=== PATIENT | male | born 1960 | race Caucasian/White ===

== ENCOUNTER 2020-08-22 19:48 | Inpatient (IN) | payer MEDICAID, OTHER ==
[~2020-08-22] VITALS: Ht 208.3 cm; Wt 185.0 kg
[2020-08-22] MEDS: PIPERACILLIN-TAZOB 3.375GM 100 ML IV ONE ×2 (00:15→23:15)
[2020-08-22 22:08] LABS: Eosinophils # (auto) 0 10 ^3/uL (0-0.8); Lymphocytes # (auto) 0.4 10 ^3/uL (0.4-5.4); Lymphocytes % (auto) 1.8 % (10.0-50.0); Monocytes # (auto) 0.6 10 ^3/uL (0-1.3); Platelet Count (auto) 289 10^3/uL (140-450)
[2020-08-22 22:11] LABS: Basophils # (auto) 0.2 10 ^3/uL (0-0.2); Basophils % (auto) 0.6 % (0.0-2.0); Hematocrit 40.5 % (41.0-53.0); Hemoglobin 13.5 g/dL (13.5-17.5); Mean Corpuscular Hemoglobin 34.3 pg (28.0-32.0); Mean Corpuscular Hgb Conc. 33.3 g/dL (32.0-36.0); Mean Corpuscular Volume 103.2 fL (80.0-100.0); Monocytes % (auto) 2.6 % (0.0-12.0); Neutrophils # (auto) 22.8 10 ^3/uL (1.6-8.6); Red Blood Cells 3.92 10^6/uL (4.5-5.90); Red Cell Distribution Width 18.2 % (11.8-14.3)
[2020-08-22 22:24] LABS: Alanine Aminotransferase 26 U/L (16-61); Albumin 3.3 g/dL (3.4-5.0); Anion Gap 7 (5-15); Aspartate Aminotransferase 39 U/L (15-37); BUN/Creatinine Ratio 17.3; Blood Urea Nitrogen 18 mg/dL (7-18); Calcium 8.2 mg/dL (8.5-10.1); Carbon Dioxide 24 mmol/L (21-32); Chloride 103 mmol/L (98-107); GFR African American 94 mL/min; GFR Non-African American 77 mL/min; Glucose 92 mg/dL (74-106); Potassium 4.9 mmol/L (3.5-5.1); Sodium 134 mmol/L (136-145)
[2020-08-22 22:30] LABS: Alkaline Phosphatase 114 U/L (45-117); Bilirubin, Total 1.7 mg/dL (0.2-1.0); Total Protein 7.2 g/dL (6.4-8.2)
[2020-08-22 22:35] LABS: Lactic Acid w/Reflex 2.2 mmol/L (0.4-2.0)
[2020-08-22] MEDS ORDERED: VANCOMYCIN 1GM/250ML 250 ML IV ONE (23:15)
[2020-08-22 23:52] LABS: Urine Bacteria FEW /hpf (None Seen); Urine Blood 1+ /uL (Negative); Urine Mucus FEW (None Seen); Urine Specific Gravity 1.028 (1.001-1.035); Urine WBC 22 /hpf (0 - 3)
[2020-08-23 00:04] LABS: Alcohol, Urine < 3.0 mg/dL (0-10); Amphetamine Screen, Urine POSITIVE (NEGATIVE); Barbiturate Scree,Urine NEGATIVE (NEGATIVE); Benzodiazephine Screen, Urine NEGATIVE (NEGATIVE); Cannabinoid Screen, Urine NEGATIVE (NEGATIVE); Cocaine Screen, Urine NEGATIVE (NEGATIVE); Opiate Scree,Urine NEGATIVE (NEGATIVE); Phencyclidine Screen, Urine NEGATIVE (NEGATIVE)
[2020-08-23] MEDS ORDERED: ACETAMINOPHEN 325 MG TAB PO PRN (03:00)
[2020-08-23] MEDS ORDERED: ONDANSETRON HCL 4 MG/2 ML VIAL IV PRN (03:00)
[2020-08-23] MEDS ORDERED: NITROGLYCERIN 0.4 MG SL TAB SL PRN (04:45)
[2020-08-23] MEDS ORDERED: MORPHINE SULF INJ 2 MG/ML SYRINGE 1ML IV PRN (04:45)
[2020-08-23] MEDS: CLINDAMYCIN 600MG IV 50 ML IV SCH ×3 (06:11→22:22)
[2020-08-23] MEDS ORDERED: cloNIDine HCL 0.1 MG TAB PO PRN (08:00)
[2020-08-23] MEDS: cefTRIAXone 1GM/50ML D5W 50 ML IV SCH (08:40)
[2020-08-23] MEDS: ASPirin 81 mg TAB PO SCH (11:17)
[2020-08-23] MEDS: METOPROLOL TARTRATE 25 MG TAB PO SCH ×2 (11:18→22:23)
[2020-08-23] MEDS: FAMOTIDINE 20 MG TAB PO SCH ×2 (11:18→22:23)
[2020-08-23] MEDS: FUROSEMIDE 40 MG TAB PO SCH (11:18)
[2020-08-23] MEDS: ENOXAPARIN SOD 40 MG/0.4 ML SYRINGE SC SCH (11:19)
[2020-08-23] MEDS ORDERED: IOHEXOL 350 MG/ML 100ML IJ ONE (11:31)
[2020-08-23 22:00] VITALS: BP 132/69
[2020-08-23] MEDS: ATORVASTATIN 20 MG TAB PO SCH (22:22)
[2020-08-24 05:00] VITALS: BP 112/64
[2020-08-24 05:24] LABS: Basophils # (auto) 0 10 ^3/uL (0-0.2); Basophils % (auto) 0.5 % (0.0-2.0); Eosinophils # (auto) 0.1 10 ^3/uL (0-0.8); Hematocrit 40.6 % (41.0-53.0); Hemoglobin 13.5 g/dL (13.5-17.5); Lymphocytes # (auto) 0.6 10 ^3/uL (0.4-5.4); Lymphocytes % (auto) 11.4 % (10.0-50.0); Mean Corpuscular Hemoglobin 34.5 pg (28.0-32.0); Mean Corpuscular Hgb Conc. 33.3 g/dL (32.0-36.0); Mean Corpuscular Volume 103.7 fL (80.0-100.0); Monocytes # (auto) 0.5 10 ^3/uL (0-1.3); Neutrophils # (auto) 4.4 10 ^3/uL (1.6-8.6); Neutrophils % (auto) 78.1 % (37.0-80.0); Platelet Count (auto) 254 10^3/uL (140-450); Red Blood Cells 3.91 10^6/uL (4.5-5.90); Red Cell Distribution Width 18.4 % (11.8-14.3); White Blood Cell 5.6 10^3/uL (4.4-10.8)
[2020-08-24 05:44] LABS: Calcium 8.3 mg/dL (8.5-10.1)
[2020-08-24] MEDS: CLINDAMYCIN 600MG IV 50 ML IV SCH ×3 (06:37→21:30)
[2020-08-24 08:00] VITALS: BP 101/58
[2020-08-24] MEDS: ENOXAPARIN SOD 40 MG/0.4 ML SYRINGE SC SCH (08:37)
[2020-08-24] MEDS: ASPirin 81 mg TAB PO SCH (08:37)
[2020-08-24] MEDS: cefTRIAXone 1GM/50ML D5W 50 ML IV SCH (08:37)
[2020-08-24] MEDS: FAMOTIDINE 20 MG TAB PO SCH ×2 (08:38→21:30)
[2020-08-24] MEDS: FUROSEMIDE 40 MG TAB PO SCH (08:38)
[2020-08-24] MEDS: METOPROLOL TARTRATE 25 MG TAB PO SCH ×2 (08:38→21:31)
[2020-08-24 12:00] VITALS: BP 118/76
[2020-08-24 16:00] VITALS: BP 129/77
[2020-08-24] MEDS: ATORVASTATIN 20 MG TAB PO SCH (21:32)
[2020-08-24 22:00] VITALS: BP 126/59
[2020-08-25 05:00] VITALS: BP 151/74
[2020-08-25] MEDS: CLINDAMYCIN 600MG IV 50 ML IV SCH ×3 (05:20→21:41)
[2020-08-25] MEDS: cefTRIAXone 1GM/50ML D5W 50 ML IV SCH (08:59)
[2020-08-25 09:02] VITALS: BP 123/51
[2020-08-25] MEDS: FUROSEMIDE 40 MG TAB PO SCH (09:35)
[2020-08-25] MEDS: ASPirin 81 mg TAB PO SCH (09:35)
[2020-08-25] MEDS: ENOXAPARIN SOD 40 MG/0.4 ML SYRINGE SC SCH (09:36)
[2020-08-25] MEDS: METOPROLOL TARTRATE 25 MG TAB PO SCH ×2 (09:36→21:41)
[2020-08-25] MEDS: FAMOTIDINE 20 MG TAB PO SCH ×2 (09:36→21:42)
[2020-08-25 12:54] VITALS: BP 133/70
[2020-08-25 16:23] VITALS: BP 145/73
[2020-08-25] MEDS: CEFEPIME 1 GM in SODIUM CHL 0.9% 50 ML IV SCH (18:00)
[2020-08-25] MEDS: ATORVASTATIN 20 MG TAB PO SCH (21:41)
[2020-08-25 22:00] VITALS: BP 128/81
[2020-08-26] MEDS: CEFEPIME 1 GM in SODIUM CHL 0.9% 50 ML IV SCH ×4 (01:37→22:31)
[2020-08-26 05:00] VITALS: BP 136/83
[2020-08-26] MEDS: CLINDAMYCIN 600MG IV 50 ML IV SCH ×3 (05:55→22:31)
[2020-08-26 08:49] VITALS: BP 155/87
[2020-08-26] MEDS: FLORASTOR (S. BOULARDII) 250 MG CAP PO SCH (09:42)
[2020-08-26] MEDS: ASPirin 81 mg TAB PO SCH (09:42)
[2020-08-26] MEDS: METOPROLOL TARTRATE 25 MG TAB PO SCH ×2 (09:43→22:40)
[2020-08-26] MEDS: FAMOTIDINE 20 MG TAB PO SCH ×2 (09:43→22:40)
[2020-08-26] MEDS: FUROSEMIDE 40 MG TAB PO SCH (09:43)
[2020-08-26] MEDS: ENOXAPARIN SOD 40 MG/0.4 ML SYRINGE SC SCH (09:44)
[2020-08-26 12:42] VITALS: BP 141/91
[2020-08-26 17:00] VITALS: BP 150/82
[2020-08-26 22:00] VITALS: BP 167/104
[2020-08-26] MEDS: ATORVASTATIN 20 MG TAB PO SCH (22:32)
[2020-08-27] MEDS: CEFEPIME 1 GM in SODIUM CHL 0.9% 50 ML IV SCH ×3 (02:30→18:36)
[2020-08-27 05:00] VITALS: BP 116/59
[2020-08-27] MEDS: CLINDAMYCIN 600MG IV 50 ML IV SCH ×4 (06:54→22:22)
[2020-08-27 08:30] VITALS: BP 151/85
[2020-08-27] MEDS ORDERED: FUROSEMIDE 40 MG/4 ML VIAL IV ONE (08:45)
[2020-08-27] MEDS: ASPirin 81 mg TAB PO SCH (10:20)
[2020-08-27] MEDS: METOPROLOL TARTRATE 25 MG TAB PO SCH ×2 (10:20→22:00)
[2020-08-27] MEDS: FLORASTOR (S. BOULARDII) 250 MG CAP PO SCH (10:20)
[2020-08-27] MEDS: FAMOTIDINE 20 MG TAB PO SCH ×2 (10:20→22:23)
[2020-08-27] MEDS: LISINOPRIL 10 MG TAB PO SCH (10:21)
[2020-08-27] MEDS: ENOXAPARIN SOD 40 MG/0.4 ML SYRINGE SC SCH (10:21)
[2020-08-27 12:30] VITALS: BP 132/78
[2020-08-27 16:40] VITALS: BP 123/70
[2020-08-27 22:00] VITALS: BP 101/55
[2020-08-27] MEDS: ATORVASTATIN 20 MG TAB PO SCH (22:22)
[2020-08-28] MEDS: CEFEPIME 1 GM in SODIUM CHL 0.9% 50 ML IV SCH ×3 (01:50→17:37)
[2020-08-28 05:00] VITALS: BP 119/65
[2020-08-28 06:14] LABS: Basophils # (auto) 0.1 10 ^3/uL (0-0.2); Eosinophils # (auto) 0.4 10 ^3/uL (0-0.8); Hemoglobin 15.1 g/dL (13.5-17.5); Neutrophils # (auto) 5.6 10 ^3/uL (1.6-8.6); White Blood Cell 8.4 10^3/uL (4.4-10.8)
[2020-08-28 06:16] LABS: Eosinophils % (auto) 4.9 % (0.0-7.0); Hematocrit 43.8 % (41.0-53.0); Lymphocytes # (auto) 1.6 10 ^3/uL (0.4-5.4); Lymphocytes % (auto) 18.7 % (10.0-50.0); Mean Corpuscular Hgb Conc. 34.4 g/dL (32.0-36.0); Mean Corpuscular Volume 101.7 fL (80.0-100.0); Monocytes # (auto) 0.8 10 ^3/uL (0-1.3); Neutrophils % (auto) 66.4 % (37.0-80.0); Nucleated Red Blood Cells % 0.1 %; Platelet Count (auto) 305 10^3/uL (140-450); Red Blood Cells 4.31 10^6/uL (4.5-5.90); Red Cell Distribution Width 18.1 % (11.8-14.3)
[2020-08-28 06:31] LABS: BUN/Creatinine Ratio 20.3; Calcium 8.9 mg/dL (8.5-10.1); Potassium 4.2 mmol/L (3.5-5.1)
[2020-08-28] MEDS: CLINDAMYCIN 600MG IV 50 ML IV SCH ×4 (06:50→22:21)
[2020-08-28 08:57] VITALS: BP 127/60
[2020-08-28] MEDS: ENOXAPARIN SOD 40 MG/0.4 ML SYRINGE SC SCH (09:35)
[2020-08-28] MEDS: FAMOTIDINE 20 MG TAB PO SCH ×2 (09:35→22:24)
[2020-08-28] MEDS: FUROSEMIDE 40 MG/4 ML VIAL IV SCH (09:35)
[2020-08-28] MEDS: ASPirin 81 mg TAB PO SCH (09:35)
[2020-08-28] MEDS: LISINOPRIL 10 MG TAB PO SCH (09:35)
[2020-08-28] MEDS: METOPROLOL TARTRATE 25 MG TAB PO SCH ×2 (09:36→22:22)
[2020-08-28] MEDS: FLORASTOR (S. BOULARDII) 250 MG CAP PO SCH (09:41)
[2020-08-28 12:17] VITALS: BP 126/79
[2020-08-28 16:49] VITALS: BP 142/84
[2020-08-28 22:00] VITALS: BP 132/74
[2020-08-28] MEDS: ATORVASTATIN 20 MG TAB PO SCH (22:22)
[2020-08-29] MEDS: CEFEPIME 1 GM in SODIUM CHL 0.9% 50 ML IV SCH ×3 (03:03→09:34)
[2020-08-29 05:00] VITALS: BP 107/71
[2020-08-29] MEDS: CLINDAMYCIN 600MG IV 50 ML IV SCH (06:49)
[2020-08-29] MEDS: ASPirin 81 mg TAB PO SCH (09:31)
[2020-08-29] MEDS: LISINOPRIL 10 MG TAB PO SCH (09:31)
[2020-08-29] MEDS: FUROSEMIDE 40 MG/4 ML VIAL IV SCH (09:31)
[2020-08-29] MEDS: METOPROLOL TARTRATE 25 MG TAB PO SCH ×2 (09:32→22:24)
[2020-08-29] MEDS: ENOXAPARIN SOD 40 MG/0.4 ML SYRINGE SC SCH (09:32)
[2020-08-29] MEDS: FAMOTIDINE 20 MG TAB PO SCH ×2 (09:32→22:24)
[2020-08-29] MEDS: FLORASTOR (S. BOULARDII) 250 MG CAP PO SCH (09:34)
[2020-08-29] MEDS: CLINDAMYCIN HCL 150 MG CAP PO SCH ×2 (14:52→22:23)
[2020-08-29 17:20] VITALS: BP 141/60
[2020-08-29 17:38] LABS: Urine Bacteria NONE SEEN /hpf (None Seen); Urine Blood Negative /uL (Negative); Urine Mucus FEW (None Seen); Urine Specific Gravity 1.015 (1.001-1.035); Urine WBC 1 /hpf (0 - 3)
[2020-08-29] MEDS: cefTRIAXone 1GM/50ML D5W 50 ML IV SCH (18:02)
[2020-08-29 22:00] VITALS: BP 142/81
[2020-08-29] MEDS: ATORVASTATIN 20 MG TAB PO SCH (22:23)
[2020-08-30 05:00] VITALS: BP 113/55
[2020-08-30] MEDS: CLINDAMYCIN HCL 150 MG CAP PO SCH ×3 (05:17→21:45)
[2020-08-30 06:43] LABS: Potassium 4.7 mmol/L (3.5-5.1)
[2020-08-30 06:48] LABS: Calcium 8.9 mg/dL (8.5-10.1)
[2020-08-30 06:49] LABS: Basophils # (auto) 0.1 10 ^3/uL (0-0.2); Eosinophils # (auto) 0.6 10 ^3/uL (0-0.8); Hematocrit 44.1 % (41.0-53.0)
[2020-08-30 06:50] LABS: Basophils % (auto) 0.6 % (0.0-2.0); Eosinophils % (auto) 5.3 % (0.0-7.0); Hemoglobin 15.1 g/dL (13.5-17.5); Lymphocytes # (auto) 1.2 10 ^3/uL (0.4-5.4); Lymphocytes % (auto) 11.4 % (10.0-50.0); Mean Corpuscular Hemoglobin 34.8 pg (28.0-32.0); Mean Corpuscular Hgb Conc. 34.2 g/dL (32.0-36.0); Mean Corpuscular Volume 101.8 fL (80.0-100.0); Monocytes # (auto) 0.7 10 ^3/uL (0-1.3); Monocytes % (auto) 6.4 % (0.0-12.0); Neutrophils # (auto) 8.2 10 ^3/uL (1.6-8.6); Neutrophils % (auto) 76.3 % (37.0-80.0); Platelet Count (auto) 339 10^3/uL (140-450); Red Blood Cells 4.33 10^6/uL (4.5-5.90); Red Cell Distribution Width 18.1 % (11.8-14.3); White Blood Cell 10.8 10^3/uL (4.4-10.8)
[2020-08-30 08:57] VITALS: BP 109/57
[2020-08-30] MEDS: cefTRIAXone 1GM/50ML D5W 50 ML IV SCH (09:00)
[2020-08-30] MEDS: FAMOTIDINE 20 MG TAB PO SCH ×2 (10:06→21:30)
[2020-08-30] MEDS: ASPirin 81 mg TAB PO SCH (10:06)
[2020-08-30] MEDS: FLORASTOR (S. BOULARDII) 250 MG CAP PO SCH (10:06)
[2020-08-30] MEDS: ENOXAPARIN SOD 40 MG/0.4 ML SYRINGE SC SCH (10:07)
[2020-08-30] MEDS: FUROSEMIDE 40 MG/4 ML VIAL IV SCH (10:08)
[2020-08-30] MEDS: METOPROLOL TARTRATE 25 MG TAB PO SCH ×2 (10:25→21:45)
[2020-08-30] MEDS: LISINOPRIL 10 MG TAB PO SCH (10:26)
[2020-08-30 13:00] VITALS: BP 132/76
[2020-08-30 17:00] VITALS: BP 138/77
[2020-08-30] MEDS: ATORVASTATIN 20 MG TAB PO SCH (21:30)
[2020-08-30 22:00] VITALS: BP 108/64
[2020-08-31 05:00] VITALS: BP 123/67
[2020-08-31] MEDS: CLINDAMYCIN HCL 150 MG CAP PO SCH (05:08)
[2020-08-31 08:08] LABS: Cholesterol 95 mg/dL (< 200); HDL Cholesterol 32 mg/dL (40-59); LDL Cholesterol 57 mg/dL (< 100); Triglycerides 93 mg/dL (< 150)
[2020-08-31 08:47] VITALS: BP 136/78
[2020-08-31] MEDS ORDERED: diphenhdrAMINE HCL 50 MG/1 ML VL IV ONE (09:30)
[2020-08-31] MEDS ORDERED: methylPREDNISolone SOD SUCC 40 MG/ML VL IV ONE (09:30)
[2020-08-31] MEDS: FUROSEMIDE 40 MG/4 ML VIAL IV SCH (10:35)
[2020-08-31] MEDS: ASPirin 81 mg TAB PO SCH (10:36)
[2020-08-31] MEDS: FAMOTIDINE 20 MG TAB PO SCH (10:36)
[2020-08-31] MEDS: METOPROLOL TARTRATE 25 MG TAB PO SCH (10:36)
[2020-08-31] MEDS: FLORASTOR (S. BOULARDII) 250 MG CAP PO SCH (10:36)
[2020-08-31] MEDS: LISINOPRIL 10 MG TAB PO SCH (10:37)
[2020-08-31] MEDS: ENOXAPARIN SOD 40 MG/0.4 ML SYRINGE SC SCH (10:38)
[2020-08-31 12:47] VITALS: BP 118/84
[2020-08-31] MEDS ORDERED: DIPH25CA66 PO (15:11)
[2020-08-31] MEDS ORDERED: PANT40TA2 PO (15:11)
[2020-08-31] MEDS ORDERED: METH4PAK PO (15:11)
[2020-08-31 16:03] VITALS: BP 118/84
[2020-08-31 16:47] VITALS: BP 109/67
== END 2020-08-31 18:18 | disposition home or self-care (01) | DRG 720 ==
LOC: EDBD 19:48 → ER 19:54 → TELE 08-23 04:36 → WEST WING 08-23 17:30 → TELE-WESTW 08-23 17:36 → WEST WING 08-24 12:02
PROVIDERS: ADMIT Nurse Practitioner; ATTEND Internal Medicine
DX: A41.9 Sepsis, unspecified organism (principal); J96.00 Acute respiratory failure, unspecified whether with hypoxia or hypercapnia; G93.40 Encephalopathy, unspecified; E44.0 Moderate protein-calorie malnutrition; Z20.822 Contact with and (suspected) exposure to COVID-19; E66.01 Morbid (severe) obesity due to excess calories; L03.115 Cellulitis of right lower limb; N39.0 Urinary tract infection, site not specified; I10 Essential (primary) hypertension; Z68.41 Body mass index [BMI] 40.0-44.9, adult; F15.10 Other stimulant abuse, uncomplicated; J98.11 Atelectasis; K76.0 Fatty (change of) liver, not elsewhere classified; I89.0 Lymphedema, not elsewhere classified; L27.0 Generalized skin eruption due to drugs and medicaments taken internally; T36.8X5A Adverse effect of other systemic antibiotics, initial encounter; Y92.89 Other specified places as the place of occurrence of the external cause; Z79.899 Other long term (current) drug therapy; Z71.51 Drug abuse counseling and surveillance of drug abuser
CPT/HCPCS: 36415; 36600; 70450; 71045; 71275; 73590; 73700; 80048; 80053; 80061; 80307; 81001; 82805; 83605; 83735; 83880; 84484; 85025; 85379; 87040; 87086; 87426; 93005; 93306; 93925; 93970; 96365; 96366; 96367; 96372; G0378; J0696; J2543; J3490